=== PATIENT | female | born 1955 | race Caucasian/White ===

== ENCOUNTER 2021-06-22 13:57 | Inpatient (IN) | payer OTHER ==
[~2021-06-22] VITALS: Ht 152.4 cm; Wt 64.4 kg
[2021-06-22] MEDS ORDERED: IV NORMAL SALINE 1000 ML BAG IV ONE (14:15)
--- NOTE | 2021-06-22 14:27 | NUR ---
PT IS IN ROOM #2A. DR ALEXANDER EVALUATED THE PT.
[2021-06-22 14:45] LABS: HEMATOCRIT 37.9 % (31.2-41.9); MEAN CORPUSCULAR HEMOGLOBIN 30.6 uug (24.7-32.8); MEAN CORPUSCULAR VOLUME 89.6 fL (75.5-95.3); PLATELET COUNT (AUTO) 243 K/uL (179-408)
[2021-06-22 15:01] LABS: CREATININE 0.8 mg/dL (0.6-1.3); POTASSIUM 3.4 mmol/L (3.5-5.1)
[2021-06-22 15:15] LABS: BILIRUBIN,DIRECT 0.1 mg/dL (0.0-0.2); BILIRUBIN,TOTAL 0.4 mg/dL (0.2-1.0); TOTAL PROTEIN, SERUM 7.8 g/dL (6.4-8.2)
[2021-06-22] MEDS ORDERED: LABETALOL HCL 100 MG/20 ML VIAL IV ONE (15:30)
[2021-06-22] MEDS ORDERED: ASPIRIN 81 MG TAB.CHEW PO ONE (15:30)
[2021-06-22 15:35] LABS: THYROID STIMULATING HORMONE 0.835 mIU/mL (0.358-3.740)
[2021-06-22] MEDS ORDERED: ENOXAPARIN SODIUM 60 MG/0.6 ML DISP.SYRIN SQ ONE ×2 (15:45→16:30)
[2021-06-22] MEDS ORDERED: LABETALOL HCL 100 MG/20 ML VIAL ONE (16:29)
[2021-06-22] MEDS ORDERED: ASPIRIN 81 MG TAB.CHEW ONE (16:30)
[2021-06-22] MEDS ORDERED: MAGNESIUM HYDROXIDE 30 ML LIQUID UDC PO PRN (20:30)
[2021-06-22] MEDS ORDERED: Z GUARD REMEDY PASTE 57 GM TUBE TOP PRN (20:30)
[2021-06-22] MEDS ORDERED: ZOLPIDEM 5 MG TABLET PO PRN (20:30)
[2021-06-22] MEDS ORDERED: ONDANSETRON 4 MG/2 ML VIAL IV PRN (20:30)
[2021-06-22] MEDS ORDERED: ACETAMINOPHEN 325 MG TABLET PO PRN (20:30)
[2021-06-22] MEDS ORDERED: LEVO5TAB13 PO (21:23)
[2021-06-22] MEDS ORDERED: POTASSIUM CHLORIDE 20 MEQ TAB.PRT.SR PO ONE (21:30)
--- NOTE | 2021-06-22 21:38 | NUR ---
65 YEAR OLD FEMALE RECEIVED TO ROOM 317 FOR NSTEMI .PT IS [id number].VS ARE STABLE CALL LIGHT WITH IN REACH MD NOTIFIED FOR THE ADMISSION
[2021-06-22] MEDS ORDERED: NITROGLYCERIN 0.4 MG/TAB BOTTLE SL PRN (22:00)
[2021-06-22 22:12] VITALS: BP 111/68
[2021-06-22] MEDS: LORATADINE 10 MG TABLET PO SCH (22:32)
--- NOTE | 2021-06-22 22:59 | NUR ---
REPORT WAS GIVEN TO INSPECTOR FLOOR. PT WAS TRANSFERED TO TELEMETRY FLOOR.
[2021-06-22] MEDS: ENOXAPARIN SODIUM 60 MG/0.6 ML DISP.SYRIN SQ SCH (23:00)
--- NOTE | 2021-06-22 23:00 | NUR ---
PER MD ORDERS LOVENOX 60MG SQ GIVEN
[2021-06-23 00:49] VITALS: BP 99/53
[2021-06-23 04:40] VITALS: BP 95/53
[2021-06-23 07:03] LABS: CREATININE 0.7 mg/dL (0.6-1.3); MAGNESIUM 2.3 mg/dL (1.8-2.4); PHOSPHOROUS 3.9 mg/dL (2.5-4.9); POTASSIUM 3.7 mmol/L (3.5-5.1)
[2021-06-23 07:04] LABS: HEMATOCRIT 36.6 % (31.2-41.9); MEAN CORPUSCULAR HEMOGLOBIN 30.7 uug (24.7-32.8); MEAN CORPUSCULAR VOLUME 90.5 fL (75.5-95.3); PLATELET COUNT (AUTO) 227 K/uL (179-408)
[2021-06-23] MEDS: ASPIRIN 81 MG TAB.CHEW PO SCH (08:50)
--- NOTE | 2021-06-23 10:00 | NUR ---
SEEN BY DR. HERNANDEZ WHO SPOKE WITH PATIENT AND FAMILY. ARRANGING FOR CARDIAC CTA.
[2021-06-23 12:00] VITALS: BP 135/88
[2021-06-23] MEDS ORDERED: ENOXAPARIN SODIUM 40 MG/0.4 ML DISP.SYRIN SQ SCH (12:00)
[2021-06-23] MEDS: ATORVASTATIN 40 MG TABLET PO SCH (12:30)
[2021-06-23] MEDS: METOPROLOL SUCCINATE XL 25 MG TAB.SR.24H PO SCH (12:30)
--- NOTE | 2021-06-23 14:00 | NUR ---
FAMILY AT BEDSIDE. DENIES PAIN OR DISCOMFORT.
[2021-06-23 16:00] VITALS: BP 136/63
[2021-06-23] MEDS ORDERED: IOHEXOL 350 100 ML INFUS..BTL ONE (17:01)
[2021-06-23] MEDS: ENOXAPARIN SODIUM 60 MG/0.6 ML DISP.SYRIN SQ SCH (17:14)
[2021-06-23] MEDS: LORATADINE 10 MG TABLET PO SCH (20:01)
[2021-06-23 20:32] VITALS: BP 106/63
[2021-06-24 00:25] VITALS: BP 133/61
[2021-06-24 04:20] VITALS: BP 107/54
[2021-06-24] MEDS: ENOXAPARIN SODIUM 60 MG/0.6 ML DISP.SYRIN SQ SCH ×2 (05:04→18:01)
[2021-06-24 06:37] LABS: HEMATOCRIT 38.3 % (31.2-41.9); MEAN CORPUSCULAR HEMOGLOBIN 30.5 uug (24.7-32.8); MEAN CORPUSCULAR VOLUME 90.4 fL (75.5-95.3); PLATELET COUNT (AUTO) 229 K/uL (179-408)
[2021-06-24 07:10] LABS: CREATININE 0.6 mg/dL (0.6-1.3); POTASSIUM 3.6 mmol/L (3.5-5.1)
[2021-06-24] MEDS: ASPIRIN 81 MG TAB.CHEW PO SCH (08:49)
[2021-06-24] MEDS: METOPROLOL SUCCINATE XL 25 MG TAB.SR.24H PO SCH (08:50)
[2021-06-24] MEDS ORDERED: MORPHINE SULFATE 2 MG/1 ML DISP.SYRIN IV STA (11:21)
[2021-06-24 12:00] VITALS: BP 132/63
[2021-06-24] MEDS ORDERED: MORPHINE SULFATE 2 MG/1 ML DISP.SYRIN IV ONE (13:00)
--- NOTE | 2021-06-24 15:23 | NUR ---
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 Report given to ACLS nurse and pt was taken by viviana to ambulance for transport to [facility].
--- NOTE | 2021-06-24 17:25 | NUR ---
Pt returned to room after CT scan at 1720
[2021-06-24 20:38] VITALS: BP 117/68
[2021-06-24] MEDS: ATORVASTATIN 40 MG TABLET PO SCH (20:48)
[2021-06-24] MEDS: LORATADINE 10 MG TABLET PO SCH (20:48)
[2021-06-25 00:21] VITALS: BP 118/64
[2021-06-25 04:40] VITALS: BP 108/65
[2021-06-25] MEDS: ENOXAPARIN SODIUM 60 MG/0.6 ML DISP.SYRIN SQ SCH (05:51)
[2021-06-25] MEDS: ASPIRIN 81 MG TAB.CHEW PO SCH (08:01)
[2021-06-25] MEDS: METOPROLOL SUCCINATE XL 25 MG TAB.SR.24H PO SCH (08:01)
[2021-06-25 12:05] VITALS: BP 118/56
[2021-06-25] MEDS ORDERED: ASPI81TA31 PO (12:54)
[2021-06-25] MEDS ORDERED: ATOR40TA PO (12:54)
[2021-06-25] MEDS ORDERED: METO-356 PO (12:54)
--- NOTE | 2021-06-25 13:11 | NUR ---
dc orders received noted and carried out.dc heplock per md orders,dc instruction and education given to the pt pt said she will follow up with her pcp in one week pt left the facility via private car in stable condition
== END 2021-06-25 13:20 | disposition home or self-care (01) | DRG 280 ==
LOC: ER 13:57 → TELE3 20:04
PROVIDERS: ADMIT Nurse Practitioner Acute Care; ATTEND Nurse Practitioner Acute Care
DX: I21.4 Non-ST elevation (NSTEMI) myocardial infarction (principal); G93.41 Metabolic encephalopathy; I47.1 Supraventricular tachycardia; I10 Essential (primary) hypertension; E78.5 Hyperlipidemia, unspecified; E87.6 Hypokalemia; J30.9 Allergic rhinitis, unspecified; Z20.822 Contact with and (suspected) exposure to COVID-19
CPT/HCPCS: 36415; 70030-TC; 70450; 71045; 71275; 83735; 84100; 84443; 85025; 85730; 93005; 93307; A4663; G0378; J1650; J2270; J3490; Q9967